=== PATIENT | female | born 1950 | race Caucasian/White ===

== ENCOUNTER 2016-12-30 08:50 | Emergency (ER) | payer MEDICARE, BC, OTHER ==
--- NOTE | 2016-12-30 09:05 | ED Physician Documentation ---
PD HPI NVD - Stated complaint Stated Complaint: DIARRHEA - Chief complaint Chief Complaint: Abd Pain - History obtained from History obtained from: Patient - History of Present Illness Timing - onset: How many weeks ago (3-4 weeks ago onset of lower abd cramping pains intermittently, which is worse the past couple of days. Noted some mucous and red blood with soft/loose BM the past couple days. No fever, no nausea, no vomiting.) Timing - duration: Days (worse the past couple days, but has had some for 3-4 weeks intermittently.) Timing - details: Gradual onset, Still present, Waxing and waning Associated symptoms: Abdominal pain (lower abd). No: Fever, Chest pain, Near syncope / syncope, Loss of appetite Contributing factors: No: Sick contact, Bad food, Travel, Recent antibiotics Improved by: BM. No: Eating Worsened by: No: Eating, Moving, Position, Palpation Similar symptoms before: Has not had sx before (had diverticulitis a few years ago but did not act like this, more abrupt and continual at that time.) Recently seen: Not recently seen Review of Systems Constitutional: denies: Fever, Chills, Myalgias Nose: denies: Rhinorrhea / runny nose, Congestion Throat: denies: Sore throat Respiratory: denies: Cough GI: reports: Abdominal Pain, Diarrhea, Bloody / black stool. denies: Abdominal Swelling, Nausea, Vomiting, Constipation : denies: Dysuria, Frequency, Discharge Skin: denies: Rash, Lesions Musculoskeletal: denies: Back pain Neurologic: denies: Generalized weakness, Near syncope, Altered mental status PD PAST MEDICAL HISTORY - Past Medical History Past Medical History: Yes Cardiovascular: None Respiratory: None Neuro: None Endocrine/Autoimmune: None GI: Diverticulitis - Past Surgical History Past Surgical History: Yes - Present Medications Home Medications: Ambulatory Orders Medication Instructions Recorded Confirmed Cephalexin [Keflex] 500 mg PO TID #30 capsule 12/30/16 Fluoxetine HCl [Prozac] 20 mg PO DAILY 12/30/16 12/30/16 Hydrocodone/Acetaminophen [[place] 1 each PO Q6H PRN #20 tablet 12/30/16 5-325 Tablet] Metronidazole [Flagyl] 500 mg PO BID #20 tablet 12/30/16 Naproxen 375 mg PO BID #20 tablet 12/30/16 - Allergies Allergies/Adverse Reactions: Allergies Allergy/AdvReac Type Severity Reaction Status Date / Time No Known Drug Allergies Allergy Verified 12/30/16 08:56 - Social History Does the pt smoke?: No Smoking Status: Never smoker Does the pt drink ETOH?: Yes Does the pt have substance abuse?: No - POLST Patient has POLST: No PD ED PE NORMAL - Vitals Vital signs reviewed: Yes - General General: Alert and oriented X 3, Well developed/nourished - HEENT HEENT: Pharynx benign - Neck Neck: Supple, no meningeal sign, No adenopathy - Cardiac Cardiac: RRR, No murmur - Respiratory Respiratory: Clear bilaterally - Abdomen Abdomen: Normal bowel sounds, Soft, Non distended, No organomegaly, Other ( lower abd tender across, left and right, without guarding nor percussion tenderness. ) - Female Female : Deferred - Rectal Rectal: Deferred - Back Back: No CVA TTP - Derm Derm: Normal color - Extremities Extremities: No deformity, No tenderness to palpate - Neuro Neuro: Alert and oriented X 3, No motor deficit, Normal speech Results - Vitals Vitals: Vital Signs - 24 hr 12/30/16 12/30/16 08:54 10:17 Temperature 37.1 C Heart Rate 96 84 Respiratory 16 18 Rate Blood Pressure 119/51 L 122/44 L O2 Saturation 99 97 Oxygen O2 Source Room air - Labs Labs: Laboratory Tests 12/30/16 12/30/16 12/30/16 09:10 10:03 10:03 WBC 11.3 H RBC 4.54 Hgb 13.3 Hct 39.7 MCV 87.5 MCH 29.2 MCHC 33.4 RDW 14.5 Plt Count 343 MPV 7.2 L Neut # 8.7 H Lymph # 1.7 [place] # 0.9 Eos # 0.1 Baso # 0.1 Absolute Nucleated RBC 0.00 Nucleated RBCs 0.0 Sodium 136 Potassium 3.7 Chloride 101 Carbon Dioxide 27 Anion Gap 8.0 BUN 8 Creatinine 0.6 Estimated GFR (MDRD) 100 Glucose 109 H Calcium 9.2 Total Bilirubin 1.1 H AST 18 ALT 16 Alkaline Phosphatase 94 Total Protein 7.1 Albumin 4.2 Globulin 2.9 Albumin/Globulin Ratio 1.4 Lipase 16 L Urine Color YELLOW Urine Clarity HAZY Urine pH 6.5 Ur Specific [place] 1.020 Urine Protein NEGATIVE Urine Glucose (UA) NEGATIVE Urine Ketones 15 H Urine Occult Blood MODERATE H Urine Nitrite NEGATIVE Urine Bilirubin NEGATIVE Urine Urobilinogen 0.2 (NORMAL) Ur Leukocyte Esterase SMALL H Urine RBC 0-5 Urine WBC 6-10 H Ur Epithelial Cells RARE Transitional Ur Squamous Epith Cells MANY Squamous H Urine Bacteria Many H Urine Mucus Few Strands Ur Microscopic Review INDICATED Urine Culture Comments NOT INDICATED - Rads (name of study) abd CT Radiology: Prelim report reviewed (significant sigmoid diverticulitis. Question of small extraluminal air (image 60), to correlate clinically. ) PD MEDICAL DECISION MAKING - ED course Complexity details: reviewed results (pain better with meds, and not having peritoneal signs. I feel it is uncomplicated diverticulitis, and will treat outpt. ), considered differential, d/w patient Departure - Departure Disposition: Home, Self Care Clinical Impression: Sigmoid diverticulitis Abdominal pain Qualifiers: Abdominal location: lower abdomen, unspecified Qualified Code(s): R10.30 - Lower abdominal pain, unspecified Condition: Stable Record reviewed to determine appropriate education?: Yes Instructions: ED Diverticulitis Prescriptions: Metronidazole [Flagyl] 500 mg PO BID #20 tablet Cephalexin [Keflex] 500 mg PO TID #30 capsule Naproxen 375 mg PO BID #20 tablet Hydrocodone/Acetaminophen [[place]ora 5-325 Tablet] 1 each PO Q6H PRN #20 tablet PRN Reason: Pain Comments: Drink lots of fluids. Naproxen twice daily for inflammation, take with food. Metronidazole and cephalexin anabiotic such with a diverticulitis. Recheck if not improving over the next several days. Add Tylenol or hydrocodone if needed for pain. Follow up with her primary care next week.
[2016-12-30 09:26] LABS: BILIRUBIN,URINE NEGATIVE (NEGATIVE); PH,URINE 6.5 PH (5.0-7.5)
[2016-12-30 09:28] LABS: UA w/ MICROSCOPIC CHARGE YES
[2016-12-30 09:39] LABS: UR CULTURE IF IND NOT INDICATED
[2016-12-30] MEDS ORDERED: MORPHINE 2 MG/ML SYRINGE IVP STA (09:53)
[2016-12-30] MEDS ORDERED: KETOROLAC 60 MG/2 ML VIAL IVP STA (09:53)
[2016-12-30] MEDS ORDERED: SODIUM CHLORIDE 0.9% 1,000 ML IV ONE (09:53)
[2016-12-30] MEDS ORDERED: KETOROLAC 30 MG/ML VIAL ONE (09:54)
[2016-12-30] MEDS ORDERED: MORPHINE 2 MG/ML SYRINGE ONE (09:54)
[2016-12-30 10:29] LABS: BASOPHILS # (AUTO) 0.1 10^3/uL (0.0-0.1); BASOPHILS % (AUTO) 0.4 %; EOSINOPHILS # (AUTO) 0.1 10^3/uL (0.0-0.7); EOSINOPHILS % (AUTO) 0.6 %; HCT - HEMATOCRIT 39.7 % (37.0-47.0); HGB - HEMOGLOBIN 13.3 g/dL (12.0-16.0); LYMPHOCYTES # (AUTO) 1.7 10^3/uL (1.5-3.5); LYMPHOCYTES % (AUTO) 14.7 %; MEAN CORPUSCULAR HEMOGLOBIN 29.2 pg (27.0-31.0); MEAN CORPUSCULAR HGB CONC 33.4 g/dL (32.0-36.0); MEAN CORPUSCULAR VOLUME 87.5 fL (81.0-99.0); MEAN PLATELET VOLUME 7.2 fL (7.9-10.8); MONOCYTES # (AUTO) 0.9 10^3/uL (0.0-1.0); MONOCYTES % (AUTO) 7.6 %; NEUTROPHILS # (AUTO) 8.7 10^3/uL (1.5-6.6); NEUTROPHILS % (AUTO) 76.7 %; RED BLOOD COUNT 4.54 10^6/uL (4.20-5.40); RED CELL DISTRIBUTION WIDTH 14.5 % (12.0-15.0); UNCORRECTED WHITE BLOOD COUNT 11.3 x10^3/uL; WHITE BLOOD COUNT 11.3 x10^3/uL (4.8-10.8)
[2016-12-30 10:43] LABS: ALBUMIN/GLOBULIN RATIO 1.4 (1.0-2.2); BILIRUBIN,TOTAL 1.1 mg/dL (0.2-1.0); CALCIUM 9.2 mg/dL (8.5-10.3); CREATININE 0.6 mg/dL (0.4-1.0); POTASSIUM 3.7 mmol/L (3.5-5.0); TOTAL PROTEIN 7.1 g/dL (6.7-8.2)
[2016-12-30] MEDS ORDERED: IOPAMIDOL-300 100 ML VIAL IVP ONE (11:11)
[2016-12-30] MEDS ORDERED: cefTRIAXone 1 GM in SODIUM CHLORIDE 0.9% MINIBAG 100 ML IV STA (11:20)
[2016-12-30] MEDS ORDERED: metroNIDAZOLE 250 MG TABLET PO STA (11:20)
[2016-12-30] MEDS ORDERED: metroNIDAZOLE 250 MG TABLET PO ONE (11:21)
[2016-12-30] MEDS ORDERED: cefTRIAXone 1 GM VIAL ONE (11:22)
--- NOTE | 2016-12-30 11:40 | CT Preliminary Report ---
Exam: CT Abdomen/Pelvis W/ IMPRESSION: Impressive inflammatory changes centered on mid sigmoid colon are probably due to diverticulitis. Giv en the degree of adjacent soft tissue stranding, findings are concerning for peritonitis from potenti al perforated diverticulum. No generalized free air. However, a tiny focus of air could be outside the lumen of sigmoid colon anteriorly on axial image 60 . No rim-enhancing abscess. Given the degree of segment wall thickening, consider early colonoscopy t o exclude mass if not received performed. [facility] SITE ID: [id number]
[2016-12-30 12:17] VITALS: BP 120/69
--- NOTE | 2016-12-30 12:29 | CT Report ---
EXAM: CT ABDOMEN AND PELVIS WITH CONTRAST EXAM DATE: 12/30/2016 11:08 AM. CLINICAL HISTORY: Lower abdominal pain for 3-4 weeks, worse the past 1-2 days. COMPARISONS: None. TECHNIQUE: Routine helical CT imaging was performed through the abdomen and pelvis. IV contrast: 100 cc [id number]. Enteric contrast: No. Reconstructions: Coronal and sagittal. In accordance with CT protocol optimization, one or more of the following dose reduction techniques w ere utilized for this exam: automated exposure control, adjustment of mA and/or KV based on patient s ize, or use of iterative reconstructive technique. FINDINGS: Lung Bases: Unremarkable. Liver: Normal. No masses. Gallbladder/Bile Ducts: Unremarkable. Spleen: Normal. Pancreas: Normal. Adrenal Glands: Normal. Kidneys: Normal. No masses or hydronephrosis. Peritoneal Cavity/Bowel: Diverticulosis. Diffuse sigmoid wall thickening. Extensive soft tissue stranding adjacent to mid to distal sigmoid colon. No rim-enhancing abscess. No generalized free intraperitoneal air. Potential tiny focus of free air along anterior aspect of mi d sigmoid colon on axial image 60. Appendix not identified. Pelvic Organs: Normal. The bladder and visualized pelvic organs are within normal limits. Vasculature: No aneurysms or other significant abnormality. Bones: No significant abnormality. Other: None. IMPRESSION: 1. Impressive inflammatory changes centered on the mid sigmoid colon within the pelvis are probably d ue to diverticulitis. Given the degree of adjacent soft tissue stranding, findings are concerning for peritonitis from potential perforated diverticulitis. While there is no generalized free intraperito viral air, a tiny focus of air could be outside the lumen of sigmoid colon anteriorly on axial image 6 0. No rim-enhancing abscess. Given the degree of sigmoid wall thickening, follow-up colonoscopy could be considered to exclude mass, if not recently performed. Case discussed with Dr. Borrero on day of exam at 11:37 a.m. [facility] Referring Provider Line: [phone] SITE ID: [id number]
== END 2016-12-30 12:17 | disposition home or self-care (01) ==
LOC: ED 08:50
DX: K57.32 Diverticulitis of large intestine without perforation or abscess without bleeding (principal)
CPT/HCPCS: 36415; 74177; 80053; 81001; 83690; 85025; 96361; 96374; 96375; 99283; 99284; A9270; Q9967; 81003; 87086

== ENCOUNTER 2017-01-27 10:57 | Emergency (ER) | payer MEDICARE, BC, OTHER ==
[2017-01-27 11:50] LABS: BASOPHILS % (AUTO) 0.6 %; EOSINOPHILS # (AUTO) 0.3 10^3/uL (0.0-0.7); EOSINOPHILS % (AUTO) 4.3 %; HCT - HEMATOCRIT 39.6 % (37.0-47.0); HGB - HEMOGLOBIN 13.4 g/dL (12.0-16.0); LYMPHOCYTES # (AUTO) 2.2 10^3/uL (1.5-3.5); LYMPHOCYTES % (AUTO) 36.8 %; MEAN CORPUSCULAR HEMOGLOBIN 29.3 pg (27.0-31.0); MEAN CORPUSCULAR HGB CONC 33.9 g/dL (32.0-36.0); MEAN CORPUSCULAR VOLUME 86.5 fL (81.0-99.0); MEAN PLATELET VOLUME 7.3 fL (7.9-10.8); MONOCYTES # (AUTO) 0.5 10^3/uL (0.0-1.0); MONOCYTES % (AUTO) 7.8 %; NEUTROPHILS % (AUTO) 50.5 %; NUCLEATED RED BLOOD CELLS AUTO 0.2 /100WBC; RED BLOOD COUNT 4.57 10^6/uL (4.20-5.40)
[2017-01-27 12:00] LABS: ALBUMIN/GLOBULIN RATIO 1.5 (1.0-2.2); BILIRUBIN,TOTAL 0.7 mg/dL (0.2-1.0); CALCIUM 9.5 mg/dL (8.5-10.3); CREATININE 0.6 mg/dL (0.4-1.0); POTASSIUM 3.9 mmol/L (3.5-5.0); TOTAL PROTEIN 7.4 g/dL (6.7-8.2)
[2017-01-27 12:33] LABS: BILIRUBIN,URINE NEGATIVE (NEGATIVE)
[2017-01-27 12:34] LABS: UA w/ MICROSCOPIC CHARGE YES
[2017-01-27 12:42] LABS: UR CULTURE IF IND INDICATED
--- NOTE | 2017-01-27 13:01 | CT Report ---
EXAM: CT ABDOMEN AND PELVIS (CT KUB) EXAM DATE: 01/27/2017 12:25 PM. CLINICAL HISTORY: Persistent left lower quadrant pain . COMPARISONS: CT abdomen pelvis with contrast 12/30/2016. TECHNIQUE: Routine axial helical CT imaging was performed through the abdomen and pelvis without IV c ontrast. Reconstructions: Coronal and sagittal. In accordance with CT protocol optimization, one or more of the following dose reduction techniques w ere utilized for this exam: automated exposure control, adjustment of mA and/or KV based on patient s ize, or use of iterative reconstructive technique. FINDINGS: Lung Bases: Bilobed nodule demonstrated on image 1 within the right lower lobe measuring up to 5 mm. This may only be partially included. This level appears not to have been included previously and this is of indeterminate chronicity. Right Kidney/Ureter: No stones, hydronephrosis, or hydroureter. No perinephric fat stranding. Left Kidney/Ureter: No stones, hydronephrosis, or hydroureter. No perinephric fat stranding. Other Solid Organs: 1.0 x 1.5 cm left adrenal nodule is stable and demonstrates precontrast density m easurements consistent with a benign adenoma. 1.3 cm soft tissue nodule medial to the spleen and abut ting the tail the pancreas likely represents a splenule. Pancreatic soft tissue mass is considered un likely. Otherwise, noncontrast images of the solid organs are grossly unremarkable. Gallbladder/Bile Ducts: Unremarkable. Peritoneal Cavity: No free air, khadijah free fluid or lymphadenopathy. No bowel dilatation/obstruction. Appendix appears unremarkable. Again demonstrated is colonic diverticulosis, most extensive involving the sigmoid colon. The infiltr ative/inflammatory change around the sigmoid colon has essentially resolved. There has also been subs tantial decrease in the sigmoid wall thickening. Some possible persistent sigmoid wall thickening mad e be attributable to nondistention/nonopacification, stool and chronic diverticulosis although some p ersistent inflammatory wall thickening is not excluded. Underlying neoplasm also cannot be definitive ly excluded but is considered significantly less likely. No evidence of abscess. Pelvic Organs: No bladder stones or wall thickening. Noncontrast images of the visualized pelvic orga ns are unremarkable. Vasculature: Unremarkable. Other: None. IMPRESSION: 1. Colonic diverticulosis. 2. Substantial improvement, or resolution, of the previous pattern most consistent with sigmoid acute diverticulitis. There is some mild persistent possible nonspecific sigmoid wall thickening. No evide nce of abscess. 2. No other definite acute abnormality of the abdomen or pelvis, by noncontrast imaging. 3. Probable splenule, without change. 4. Nonspecific approximately 5 mm probable right pulmonary nodule demonstrated on image 1 is of indet erminate chronicity. If the patient is high risk, follow-up CT could be performed in 12 months, per F leischner Society guidelines. [facility] Referring Provider Line: [phone] SITE ID: [id number]
[2017-01-27 13:22] VITALS: BP 121/54
--- NOTE | 2017-01-27 13:24 | ED Physician Documentation ---
PD HPI ABD PAIN - Stated complaint Stated Complaint: ABD PX - Chief complaint Chief Complaint: Abd Pain - History obtained from History obtained from: Patient, Family - History of Present Illness Timing - onset: How many days ago (3) Timing - duration: Days (3) Timing - details: Gradual onset, Still present Quality: Cramping, Sharp, Pain Location: Periumbilical, Suprapubic Improved by: Laying still, Meds Worsened by: Position, Palpation Associated symptoms: Nausea, Diarrhea. No: Vomiting, Hematemesis, Melena, Hematochezia Similar symptoms before: Diagnosis (diverticulitis) Recently seen: Emergency Dept (one month ago with diverticulitis.) - Additional information Additional information: 66-year-old female with a history of acute diverticulitis about 1 month ago has had some improvement in her Symptoms and had nearly complete resolution about 5 days ago. About 3 days ago she began to have suprapubic tenderness and pain symptoms with urination and yesterday she developed some acute diarrhea. Review of Systems Constitutional: denies: Fever Eyes: denies: Decreased vision Ears: denies: Ear pain Nose: denies: Congestion Throat: denies: Sore throat Cardiac: denies: Chest pain / pressure Respiratory: denies: Dyspnea, Cough GI: reports: Abdominal Pain, Nausea, Diarrhea. denies: Vomiting : reports: Dysuria, Frequency Skin: denies: Rash Musculoskeletal: denies: Neck pain, Back pain, Extremity pain PD PAST MEDICAL HISTORY - Past Medical History Past Medical History: Yes Cardiovascular: None Respiratory: None Neuro: None Endocrine/Autoimmune: None GI: Diverticulitis - Past Surgical History Past Surgical History: Yes - Present Medications Home Medications: Ambulatory Orders Medication Instructions Recorded Confirmed Fluoxetine HCl [Prozac] 20 mg PO DAILY 12/30/16 01/27/17 Clotrimazole Marium 10 mg MM 5XD #20 lozenge 01/27/17 HYDROcod/ACETAM 5/325 [[place] 5/325] 1 - 2 ea PO Q6H PRN #15 tablet 01/27/17 Sulfamethox/Trimeth 800/160 1 each PO BID #14 tablet 01/27/17 [Bactrim Ds] - Allergies Allergies/Adverse Reactions: Allergies Allergy/AdvReac Type Severity Reaction Status Date / Time No Known Drug Allergies Allergy Verified 12/30/16 08:56 - Social History Does the pt smoke?: No Smoking Status: Never smoker Does the pt drink ETOH?: Yes Does the pt have substance abuse?: No - POLST Patient has POLST: No PD ED PE NORMAL - Vitals Vital signs reviewed: Yes (hypertensive) - General General: No acute distress, Well developed/nourished - HEENT HEENT: Atraumatic, PERRL, EOMI - Neck Neck: Supple, no meningeal sign - Cardiac Cardiac: RRR, No murmur - Respiratory Respiratory: No respiratory distress, Clear bilaterally - Abdomen Abdomen: Soft, Other (There is specific suprapubic tenderness without garding or rebound tenderness. ) - Back Back: No CVA TTP, No spinal TTP - Derm Derm: Normal color, Warm and dry, No rash - Extremities Extremities: No deformity, No edema - Neuro Neuro: No motor deficit, No sensory deficit - Psych Psych: Normal mood, Normal affect Results - Vitals Vitals: Vital Signs - 24 hr 01/27/17 01/27/17 11:03 13:21 Temperature 36.7 C Heart Rate 89 68 Respiratory 18 18 Rate Blood Pressure 139/78 H 121/54 L O2 Saturation 97 98 Oxygen O2 Source Room air - Labs Labs: Laboratory Tests 01/27/17 01/27/17 01/27/17 11:40 11:40 12:20 WBC 6.0 RBC 4.57 Hgb 13.4 Hct 39.6 MCV 86.5 MCH 29.3 MCHC 33.9 RDW 14.0 Plt Count 361 MPV 7.3 L Neut # 3.0 Lymph # 2.2 [place] # 0.5 Eos # 0.3 Baso # 0.0 Absolute Nucleated RBC 0.01 Nucleated RBCs 0.2 Sodium 135 Potassium 3.9 Chloride 101 Carbon Dioxide 25 Anion Gap 9.0 BUN 7 Creatinine 0.6 Estimated GFR (MDRD) 100 Glucose 96 Calcium 9.5 Total Bilirubin 0.7 AST 20 ALT 18 Alkaline Phosphatase 90 Total Protein 7.4 Albumin 4.4 Globulin 3.0 Albumin/Globulin Ratio 1.5 Lipase 22 Urine Color YELLOW Urine Clarity HAZY Urine pH 6.0 Ur Specific [place] 1.010 Urine Protein NEGATIVE Urine Glucose (UA) NEGATIVE Urine Ketones TRACE Urine Occult Blood SMALL H Urine Nitrite NEGATIVE Urine Bilirubin NEGATIVE Urine Urobilinogen 0.2 (NORMAL) Ur Leukocyte Esterase MODERATE H Urine RBC 0-5 Urine WBC 6-10 H Ur Squamous Epith Cells NONE SEEN Urine Bacteria Rare Ur Microscopic Review INDICATED Urine Culture Comments INDICATED - Rads (name of study) CT abdomen pelvis without Radiology: Prelim report reviewed (Impression: 1. Colonic diverticulosis.2. Substantial improvement, or resolution, of the previous pattern most consistent with sigmoid acute diverticulitis. There is some mild persistent possible nonspecific sigmoid wall thickening. No evidence of abscess.2. No other definite acute abnormality of the abdomen and pelvis, by noncontrast imaging.3. Probable splenule, without change.4. Nonspecific approximate 5 mm probable right pulmonary nodule demonstrated on image 1 is of indeterminate chronicity. If the patient is at high risk, follow-up CT should be performed in 12 months, per Bruno Society guidelines.), EMP read indepedently, See rad report PD MEDICAL DECISION MAKING - ED course Complexity details: reviewed old records, reviewed results, re-evaluated patient , considered differential, d/w patient, d/w family ED course: 66-year-old female with a prior history of acute diverticulitis appears to have resolved her diverticulitis and today has symptoms consistent with bladder infection and indeed on examination of the urine specimen submitted she does appear to have bladder infection without evidence of contaminated specimen.I discussed with the patient antibiotic selection she has had with Cipro a history of C. difficile and she thinks she might of had headache with Septra but is willing to try this medicine. Departure - Departure Disposition: 01 Home, Self Care Clinical Impression: Thrush, oral Urinary tract infection Qualifiers: Urinary tract infection type: acute cystitis Hematuria presence: without hematuria Qualified Code(s): N30.00 - Acute cystitis without hematuria Condition: Stable Instructions: ED UTI Cystitis Female, Thrush Oral Follow-Up: [facility] LUCAS [Primary Care Provider] - Prescriptions: Sulfamethox/Trimeth 800/160 [Bactrim Ds] 1 each PO BID #14 tablet Clotrimazole Marium 10 mg MM 5XD #20 lozenge HYDROcod/ACETAM 5/325 [[place] 5/325] 1 - 2 ea PO Q6H PRN #15 tablet PRN Reason: Pain
== END 2017-01-27 13:35 | disposition home or self-care (01) ==
LOC: ED 10:57
DX: B37.0 Candidal stomatitis (principal); N30.00 Acute cystitis without hematuria; Z87.19 Personal history of other diseases of the digestive system
CPT/HCPCS: 36415; 74176; 80053; 81001; 81003; 83690; 85025; 87077; 87086; 99283; 99284

== ENCOUNTER 2017-02-15 18:30 | Emergency (ER) | payer MEDICARE, BC, OTHER ==
[2017-02-15 18:44] VITALS: BP 116/70
[2017-02-15 19:02] LABS: BASOPHILS # (AUTO) 0.1 10^3/uL (0.0-0.1); BASOPHILS % (AUTO) 0.8 %; EOSINOPHILS # (AUTO) 0.3 10^3/uL (0.0-0.7); EOSINOPHILS % (AUTO) 3.5 %; HCT - HEMATOCRIT 39.8 % (37.0-47.0); HGB - HEMOGLOBIN 13.3 g/dL (12.0-16.0); LYMPHOCYTES # (AUTO) 2.4 10^3/uL (1.5-3.5); LYMPHOCYTES % (AUTO) 32.2 %; MEAN CORPUSCULAR HEMOGLOBIN 29.5 pg (27.0-31.0); MEAN CORPUSCULAR HGB CONC 33.5 g/dL (32.0-36.0); MEAN CORPUSCULAR VOLUME 88.1 fL (81.0-99.0); MEAN PLATELET VOLUME 6.9 fL (7.9-10.8); MONOCYTES # (AUTO) 0.6 10^3/uL (0.0-1.0); MONOCYTES % (AUTO) 8.3 %; NEUTROPHILS # (AUTO) 4.1 10^3/uL (1.5-6.6); NEUTROPHILS % (AUTO) 55.2 %; RED BLOOD COUNT 4.52 10^6/uL (4.20-5.40); RED CELL DISTRIBUTION WIDTH 14.1 % (12.0-15.0); UNCORRECTED WHITE BLOOD COUNT 7.5 x10^3/uL; WHITE BLOOD COUNT 7.5 x10^3/uL (4.8-10.8)
[2017-02-15 19:12] LABS: ALBUMIN/GLOBULIN RATIO 1.5 (1.0-2.2)
[2017-02-15 19:14] LABS: BILIRUBIN,TOTAL 0.6 mg/dL (0.2-1.0); CALCIUM 9.7 mg/dL (8.5-10.3); CREATININE 0.7 mg/dL (0.4-1.0); POTASSIUM 4.1 mmol/L (3.5-5.0); TOTAL PROTEIN 7.8 g/dL (6.7-8.2)
--- NOTE | 2017-02-15 20:36 | ED Physician Documentation ---
PD HPI ABD PAIN - Stated complaint Stated Complaint: ABD PX - Chief complaint Chief Complaint: Abd Pain PD PAST MEDICAL HISTORY - Past Medical History Cardiovascular: None Respiratory: None Neuro: None Endocrine/Autoimmune: None GI: Diverticulitis - Past Surgical History Past Surgical History: Yes - Present Medications Home Medications: Ambulatory Orders Medication Instructions Recorded Confirmed Fluoxetine HCl [Prozac] 20 mg PO DAILY 12/30/16 02/15/17 HYDROcod/ACETAM 5/325 [[place] 5/325] 1 - 2 ea PO Q6H PRN #15 tablet 01/27/17 - Allergies Allergies/Adverse Reactions: Allergies Allergy/AdvReac Type Severity Reaction Status Date / Time No Known Drug Allergies Allergy Verified 02/15/17 18:41 - Social History Does the pt smoke?: No Smoking Status: Never smoker Does the pt drink ETOH?: Yes Does the pt have substance abuse?: No - POLST Patient has POLST: No Results - Vitals Vitals: Vital Signs - 24 hr 02/15/17 18:37 Temperature 37.0 C Heart Rate 88 Respiratory 15 Rate Blood Pressure 116/70 O2 Saturation 95 Oxygen O2 Source Room air - Labs Labs: Laboratory Tests 02/15/17 02/15/17 18:56 18:56 WBC 7.5 RBC 4.52 Hgb 13.3 Hct 39.8 MCV 88.1 MCH 29.5 MCHC 33.5 RDW 14.1 Plt Count 358 MPV 6.9 L Neut # 4.1 Lymph # 2.4 [place] # 0.6 Eos # 0.3 Baso # 0.1 Absolute Nucleated RBC 0.00 Nucleated RBCs 0.0 Sodium 137 Potassium 4.1 Chloride 101 Carbon Dioxide 27 Anion Gap 8.0 BUN 10 Creatinine 0.7 Estimated GFR (MDRD) 84 L Glucose 100 Calcium 9.7 Total Bilirubin 0.6 AST 19 ALT 21 Alkaline Phosphatase 94 Total Protein 7.8 Albumin 4.6 Globulin 3.1 Albumin/Globulin Ratio 1.5 Lipase 24 PD MEDICAL DECISION MAKING - ED course ED course: Signed up to see patient but she wasn't in room. RN informs me that she left without being seen
== END 2017-02-15 20:43 | disposition left against medical advice (07) ==
LOC: ED 18:30
DX: Z53.21 Procedure and treatment not carried out due to patient leaving prior to being seen by health care provider (principal)
CPT/HCPCS: 36415; 80053; 83690; 85025

== ENCOUNTER 2020-07-04 07:00 | Outpatient (CLI) | payer MEDICARE, BC, OTHER | END 2020-07-04 23:59 | disposition home or self-care (01) | LOC: LAB.R 07:00 | PROVIDERS: ATTEND Internal Medicine Gastroenterology | DX: K58.9 Irritable bowel syndrome, unspecified (principal); K30 Functional dyspepsia | CPT/HCPCS: 81599; 82270; 83993; 87329 ==

== ENCOUNTER 2020-09-09 07:45 | Outpatient (CLI) | payer MEDICARE, BC, OTHER ==
--- NOTE | 2020-09-09 15:56 | Ultrasound Report ---
PROCEDURE: Abdomen Limited INDICATIONS: CHRONIC RT EPIGASTRIC PAIN TECHNIQUE: Real-time focused scanning was performed of the abdomen, with image documentation. COMPARISON: Prior abdominal and pelvic CT scan dated 01/27/2017. FINDINGS: Liver is mildly increased in echogenicity and there is a 5 mm right hepatic lobe cyst. Nor mal appearance of the gallbladder. No biliary dilatation. Grossly normal appearance of the right kidn ey measuring 10.0 cm in length with renal cortical thickness of 1.2 cm. No hydronephrosis, nephrolith iasis or definite visible renal calcifications. Appearance of the pancreatic head and body. Pancreati c tail is obscured by overlying bowel gas. IMPRESSION: Limited exam demonstrating no source for epigastric pain. Reviewed by: TREE Staley on 09/09/2020 3:55 PM PST Approved by: Hadley Clemens MD on 09/09/2020 3:55 PM PST Station ID: [id number]
== END 2020-09-09 07:46 | disposition home or self-care (01) ==
LOC: DI 07:45
PROVIDERS: ATTEND Family Medicine
DX: R10.13 Epigastric pain (principal); G89.29 Other chronic pain
CPT/HCPCS: 76705; 78227; J7040

== ENCOUNTER 2020-09-09 07:51 | Outpatient (CLI) | payer MEDICARE, BC, OTHER ==
[2020-09-09] MEDS ORDERED: SINCALIDE 5 MCG VIAL ONE (10:31)
[2020-09-09] MEDS ORDERED: SODIUM CHLORIDE 0.9% IV ONE (12:07)
[2020-09-09] MEDS ORDERED: SINCALIDE IV ONE (12:07)
--- NOTE | 2020-09-09 12:57 | Nuclear Medicine Report ---
PROCEDURE: Hepatobiliary HIDA w/ Rx INDICATIONS: CHRONIC RT EPIGASTRIC PX RADIOPHARMACEUTICAL: 5.49 mCi Tc-99m meprofenin i.v. and 1.08 ?g sincalide i.v. TECHNIQUE: Following intravenous administration of Tc-99m meprofenin, sequential anterior abdominal images were obtained through 30 minutes. To evaluate the contractile response of the gallbladder in response to Cholecystokinin (CCK), 1.08 microgram sincalide (0.02 ?g/kg) was administered by slow int ravenous infusion approximately 30 minutes after the administration of the radiopharmaceutical. Sequ ential imaging was continued for 30 minutes after the start of CCK infusion. Gallbladder ejection fr action was calculated. COMPARISON: Ultrasound abdomen, Limited, 09/09/2020. FINDINGS: Biliary scan: There is normal tracer uptake and excretion by the liver. There is normal visualizati on of the intrahepatic ducts, common bile duct, and gallbladder. There is normal tracer transit into the duodenum. CCK stimulation: There is normal contractile response of the gallbladder to CCK infusion. The calcu lated gallbladder ejection fraction is 84%; normal values are above 35%. IMPRESSION: 1. Normal biliary imaging study. 2. Normal contractile response of gallbladder to CCK infusion.. Reviewed by: Alina Lugo MD on 09/09/2020 12:55 PM PST Approved by: Alina Lugo MD on 09/09/2020 12:55 PM PST Station ID: [id number]
== END 2020-09-09 07:52 | disposition home or self-care (01) ==
LOC: DI 07:51
PROVIDERS: ATTEND Family Medicine
DX: R10.13 Epigastric pain (principal); G89.29 Other chronic pain
CPT/HCPCS: 78227

== ENCOUNTER 2020-12-18 14:20 | Outpatient (CLI) | payer MEDICARE, BC, OTHER ==
--- NOTE | 2020-12-19 13:30 | Mammography Report ---
BILATERAL DIGITAL SCREENING MAMMOGRAM 3D/2D: 12/18/2020 CLINICAL: Routine screening. Comparison is made to exams dated: 09/06/2019 mammogram and 08/18/2018 mammogram - [facility]. There are scattered fibroglandular elements in both breasts. No significant masses, calcifications, or other findings are seen in either breast. There has been no significant interval change. IMPRESSION: NEGATIVE There is no mammographic evidence of malignancy. A 1 year screening mammogram is recommended. This exam was interpreted at Station ID: [id number]. NOTE: For mammograms, a report in lay terms will be sent to the patient. Approximately 15% of breast malignancies will not be visualized mammographically. In the management of a palpable breast mass, a negative mammogram must not discourage biopsy of a clinically suspicious lesion. Electronically Signed By: Arturo Palacios M.D. [email or web address]/[email or web address]:12/18/2020 15:36:49 ACR BI-RADS Category 1: Negative 3341F PARENCHYMAL PATTERN: (A) - The breast(s) demonstrate(s) scattered fibroglandular densities. BI-RADS CATEGORY: (1) - 1 RECOMMENDATION: (ANNUAL) - Recommend routine annual screening mammography. [id number] 1 year screening LATERALITY: (B)
== END 2020-12-18 14:21 | disposition home or self-care (01) ==
LOC: DI 14:20
PROVIDERS: ATTEND Family Medicine
DX: Z12.31 Encounter for screening mammogram for malignant neoplasm of breast (principal)

== ENCOUNTER 2020-12-18 14:22 | Outpatient (CLI) | payer MEDICARE, BC, OTHER ==
--- NOTE | 2020-12-18 16:28 | DEXA Report ---
PROCEDURE: Dexa Spine and/or Hip INDICATIONS: POST MENOPAUSAL TECHNIQUE: Dual energy x-ray absorptiometry (DXA) was performed on a happyview System. Regions measur ed are the AP Spine, femoral neck, and if needed forearm. COMPARISON: None. FINDINGS: Lumbar Spine: Bone Mineral Density 0.731 g/cm/cm,T score -3.7, osteoporosis Left Hip: Bone Mineral Density 0.550 g/cm/cm,T score -3.6, osteoporosis Left Femoral Neck: Bone Mineral Density 0.592 g/cm/cm, T score -3.2, osteoporosis (T score greater or equal to -1.0: NORMAL) (T score from -1.1 to -2.4: OSTEOPENIA) (T score less than or equal to -2.5 to: OSTEOPOROSIS) Impression: Osteoporosis is present along the lumbosacral spine and left hip overall and identified d uring targeted imaging of the left femoral neck. Patients with diagnosis of osteoporosis or osteopenia should have regular bone mineral density assess ment. For those eligible for Medicare, routine testing is allowed once every 2 years. Testing frequ ency can be increased for patients who have rapidly progressing disease or for those who are receivin g medical therapy to restore bone mass. Reviewed by: Gerry Arroyo MD on 12/18/2020 3:27 PM [facility] Approved by: Gerry Arroyo MD on 12/18/2020 3:27 PM [facility] Station ID: [id number]
== END 2020-12-18 14:23 | disposition home or self-care (01) ==
LOC: DI 14:22
PROVIDERS: ATTEND Family Medicine
DX: M81.0 Age-related osteoporosis without current pathological fracture (principal)

== ENCOUNTER 2022-11-16 14:18 | Outpatient (CLI) | payer MEDICARE, BC, OTHER ==
--- NOTE | 2022-11-16 15:08 | DEXA Report ---
PROCEDURE: Dexa Spine and/or Hip INDICATIONS: OSTEOPOROSIS TECHNIQUE: Dual energy x-ray absorptiometry (DXA) was performed on a [employer] System. Regions measur ed are the AP Spine, femoral neck, and if needed forearm. COMPARISON: DEXA 6-21 FINDINGS: Lumbar Spine: Bone Mineral Density 0.732 g/cm/cm,T score -3.7, unchanged Left Femoral Neck: Bone Mineral Density 0.6-0 g/cm/cm, T score -3.0, compared to -3.2 Left Hip: Bone Mineral Density 0.573 g/cm/cm,T score -3.4, compared to -3.6 (T score greater or equal to -1.0: NORMAL) (T score from -1.1 to -2.4: OSTEOPENIA) (T score less than or equal to -2.5 to: OSTEOPOROSIS) Impression: Persistent osteoporosis stable versus slightly improved with the latter noted in the femoral neck and hip. Patients with diagnosis of osteoporosis or osteopenia should have regular bone mineral density assess ment. For those eligible for Medicare, routine testing is allowed once every 2 years. Testing frequ ency can be increased for patients who have rapidly progressing disease or for those who are receivin g medical therapy to restore bone mass. Reviewed by: Neeta Oropeza MD on 11/16/2022 3:07 PM PDT Approved by: Neeta Oropeza MD on 11/16/2022 3:07 PM PDT Station ID: [id number]
== END 2022-11-16 14:19 | disposition home or self-care (01) ==
LOC: DI 14:18
PROVIDERS: ATTEND Family Medicine
DX: M81.0 Age-related osteoporosis without current pathological fracture (principal)

== ENCOUNTER 2022-11-16 14:23 | Outpatient (CLI) | payer MEDICARE, BC, OTHER ==
--- NOTE | 2022-11-17 10:24 | Mammography Report ---
BILATERAL DIGITAL SCREENING MAMMOGRAM 3D/2D: 11/16/2022 CLINICAL: Routine screening. Comparison is made to exams dated: 12/18/2020 mammogram, 09/06/2019 mammogram, and 08/18/2018 mammogram - [facility]. There are scattered areas of fibroglandular density in both breasts (category b / 25%-50% glandular t issue). No significant masses, calcifications, or other findings are seen in either breast. There has been no significant interval change. IMPRESSION: NEGATIVE There is no mammographic evidence of malignancy. A 1 year screening mammogram is recommended. Based on the Tyrer Cuzick model (a risk assessment model) the patients lifetime risk is 3.7% and her 10 year risk is 2.5%. According to the ACR, ACS, and NCCN guidelines, an annual breast MRI exam raya g with mammogram is recommended if the patients lifetime risk is 20% or greater. This exam was interpreted at Station ID: [id number]. NOTE: For mammograms, a report in lay terms will be sent to the patient. Approximately 15% of breast malignancies will not be visualized mammographically. In the management of a palpable breast mass, a negative mammogram must not discourage biopsy of a clinically suspicious lesion. Electronically Signed By: Talha [email or web address]:11/16/2022 15:40:31 letter sent: No_Letter ACR BI-RADS Category 1: Negative 3341F PARENCHYMAL PATTERN: (A) - The breast(s) demonstrate(s) scattered fibroglandular densities. BI-RADS CATEGORY: (1) - 1 Mammogram [id number] 1 year screening LATERALITY: (B)
== END 2022-11-16 14:24 | disposition home or self-care (01) ==
LOC: DI 14:23
PROVIDERS: ATTEND Family Medicine
DX: Z12.31 Encounter for screening mammogram for malignant neoplasm of breast (principal)

== ENCOUNTER 2023-01-07 09:49 | Outpatient (CLI) | payer MEDICARE, BC, OTHER ==
--- NOTE | 2023-01-07 13:20 | XRAY Report ---
PROCEDURE: Lumbar Spine 2 View INDICATIONS: LOW BACK PAIN, OSTEOPROSIS TECHNIQUE: 02 views of the lumbar spine were acquired. COMPARISON: None. FINDINGS: Bones: There are 5 lumbar-type vertebral bodies. Endplate deformities of multiple vertebral bodies, m ost notably L5, L4 and T12, age indeterminate, possibly due to chronic disc disease. No traumatic sub luxation. Mild to moderate degenerative changes. Suspected osseous demineralization. Soft tissues: No suspicious calcifications. IMPRESSION: Mild to moderate degenerative changes. Endplate deformities, most notably at T12, L4, and L5 are age- indeterminate, possibly related to chronic disc disease. Correlate with location of symptoms. If ther e is high concern for further derangement, consider MRI evaluation. Reviewed by: Vini Ramírez MD on 01/07/2023 1:19 PM PDT Approved by: Vini Ramírez MD on 01/07/2023 1:19 PM PDT Station ID: [id number]
== END 2023-01-07 09:50 | disposition home or self-care (01) ==
LOC: DI.S 09:49
PROVIDERS: ATTEND Family Medicine
DX: M54.50 Low back pain, unspecified (principal); M81.0 Age-related osteoporosis without current pathological fracture; M47.816 Spondylosis without myelopathy or radiculopathy, lumbar region